=== PATIENT | female | born 1980 | race Caucasian/White ===

== ENCOUNTER → 2016-07-07 | Outpatient (CLI) | payer OTHER ==
[2015-02-24 16:30] VITALS: BP 122/74
--- NOTE | 2016-07-08 08:34 | KCIC ---
PROCEDURE Pelvic ultrasound to include transabdominal and transvaginal imaging 07/07/2016 HISTORY Pelvic pain. TECHNIQUE Using the distended urinary bladder as a sonographic window, a real-time ultrasound examination of the pelvis was performed. Additionally in an attempt to better evaluate the uterus and adnexa, a transvaginal ultrasound study was performed. Multiple images were obtained. FINDINGS The uterus is within normal limits in size. It measures 9.3 x 5.3 x 4.1 centimeters in longitudinal, transverse, and AP dimensions. The endometrial echo complex measures 4 millimeters in thickness which is within normal limits. A 5 centimeter rounded mass is seen projecting anteriorly and superiorly from the fundus of the uterus. It is consistent with a fibroid. No additional abnormality of the uterus is seen. Both ovaries are within normal limits in size and echogenicity. The right ovary measures 4.3 x 3.8 x 1.8 centimeters in size. The left ovary measures 3.3 x 3.3 x 1.6 centimeters in size. No adnexal mass is seen. No free fluid is noted. IMPRESSION 5 centimeter uterine fibroid. Otherwise negative study. Electronically signed by: Wallace Del Cid MD (July 08, 2016 08:32:09)
== END | disposition home or self-care (01) ==
LOC: KCIC US 15:00
PROVIDERS: ATTEND Physician Assistant
DX: R10.2 Pelvic and perineal pain (principal); Z87.42 Personal history of other diseases of the female genital tract
CPT/HCPCS: 76830; 76856